=== PATIENT | male | born 1975 | race Caucasian/White ===

== ENCOUNTER 2017-07-31 09:51 | Inpatient (IN) | payer OTHER ==
[2017-07-31 11:05] VITALS: BMI 25.0
--- NOTE | 2017-07-31 13:01 | HP ---
Admission [facility] Chief Complaint: DETOX TX FOR HEROIN AND XANAX DEPENDENCE Allergies/Adverse Reactions: Allergies Allergy/AdvReac Type Severity Reaction Status Date / Time fish Allergy Intermediate Hives Uncoded 07/31/17 11:27 History of Present Illness: 42 Y/O H/M WITH A HX OF XANAX AND HEROIN DEPENDENCE SEEKING DETOX TX. Exam Limitations: No Limitations - Ebola screening Have you traveled outside of the country in the last 21 days: No Have you had contact with anyone from an Ebola affected area: No Have you been sick,other than usual withdrawal symptoms: No Do you have a fever: No - Review of Systems Constitutional: Chills, Loss of Appetite, Night Sweats, Changes in sleep, Unintentional Wgt. Loss EENT: reports: Blurred Vision (WEARS RX GLASSES), Tearing, Nose Congestion, Dental Problems (MISSING TEETH) Respiratory: reports: No Symptoms reported Cardiac: reports: No Symptoms Reported GI: reports: Constipated, Diarrhea, Nausea, Poor Appetite, Poor Fluid Intake, Vomiting, Abdominal cramping : reports: Dysuria Musculoskeletal: reports: Back Pain, Joint Pain, Muscle Pain Integumentary: reports: Bruising (IVD INJ. SITES ON LEFT HAND) Neuro: reports: Unsteady Gait Endocrine: reports: No Symptoms Reported Hematology: reports: No Symptoms Reported Psychiatric: reports: Orientated x3, Anxious Other Systems: Reviewed and Negative Patient History - Patient Medical History Hx Anemia: No Hx Asthma: No Hx Chronic Obstructive Pulmonary Disease (COPD): No Hx Cardiac Disorders: No Hx Hypertension: No Hx Hypercholesterolemia: No HX Cerebrovascular Accident: No Hx Seizures: No Hx Diabetes: No Hx Gastrointestinal Disorders: No Hx Genitourinary Disorders: No Hx Sexually Transmitted Disorders: No Hx Renal Disease (ESRD): No Hx Thyroid Disease: No Hx Human Immunodeficiency Virus (HIV): No (NEGATIVE HX) Hx Hepatitis C: Yes (NO TREATMENT) Hx Depression: No Hx Suicide Attempt: No (DENIES) Hx Schizophrenia: No - Patient Surgical History Past Surgical History: No Hx Neurologic Surgery: No Hx Cataract Extraction: No Hx Cardiac Surgery: No Hx Lung Surgery: No Hx Breast Surgery: No Hx Breast Biopsy: No Hx Abdominal Surgery: No Hx Appendectomy: No Hx Cholecystectomy: No Hx Genitourinary Surgery: No Hx Orthopedic Surgery: No Anesthesia Reaction: No - PPD History Previous Implant?: Yes Documented Results: Negative w/o proof Implanted On Prior [facility] Admission?: No PPD to be Administered?: Yes - Reproductive History Patient is a Female of Child Bearing Age (11 -55 yrs old): No (MALE) Patient : (N/A) - Smoking Cessation Smoking history: Current every day smoker Have you smoked in the past 12 months: Yes Aproximately how many cigarettes per day: 10 Hx Chewing Tobacco Use: No Initiated information on smoking cessation: Yes 'Breaking Loose' booklet given: 07/31/17 - Substance & Tx. History Hx Alcohol Use: No (DENIES) Hx Substance Use: Yes (HEROIN/XANAX/COCAINE/MARIJUANA) Substance Use Type: Cocaine, Heroin, Marijuana, Tranquilizers Hx Substance Use Treatment: Yes (LAST TX AT IN [place] 3 MONTHS AGO) - Substances Abused Heroin Route: Injection Frequency: Daily Amount used: 15 bags Age of first use: 25 Date of Last Use: 07/30/17 Cocaine Route: Injection Frequency: Daily Amount used: 3 bags Age of first use: 25 Date of Last Use: 07/30/17 Marijuana/Hashish Route: Smoking Frequency: 1-3 times last 30 days Amount used: $10 Age of first use: 17 Date of Last Use: 07/28/17 Alprazolam (Xanax) Route: Oral Frequency: 3-6 times per week (4 TIMES A WEEK) Amount used: 2 STIX Age of first use: 28 Date of Last Use: 07/30/17 Family Disease History - Family Disease History Family History: Denies Admission Physical Exam S - Vital Signs Vital Signs: Vital Signs - 24 hr 07/31/17 11:03 Temperature 96.4 F L Pulse Rate 67 Respiratory 20 Rate Blood Pressure 117/73 - Physical General Appearance: Yes: Moderate Distress, Irritable, Anxious HEENTM: Yes: EOMI, Normocephalic, JOCELYN, Pharynx Normal, Rhinorrhea Respiratory: Yes: Chest Non-Tender, Lungs Clear, Normal Breath Sounds, No Respiratory Distress Neck: Yes: No masses,lesions,Nodules, Supple, Trachea in good position Breast: Yes: Breast Exam Deferred Cardiology: Yes: Regular Rhythm, Regular Rate, S1, S2 Abdominal: Yes: Normal Bowel Sounds, Non Tender, Soft Genitourinary: Yes: Other (N/C) Back: Yes: Within Normal Limits Musculoskeletal: Yes: full range of Motion, Gait Steady Extremities: Yes: Normal Range of Motion, Non-Tender 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 NML intact, Fully Oriented, Alert, Motor Strength 5/5 Integumentary: Yes: Dry, Warm, Track Osorio (NO REDNESS OR SWELLING) Lymphatic: Yes: Within Normal Limits - Diagnostic (1) Opioid dependence with withdrawal Current Visit: Yes Status: Acute (2) Sedative, hypnotic or anxiolytic dependence with withdrawal, uncomplicated Current Visit: Yes Status: Acute (3) Cannabis dependence, uncomplicated Current Visit: Yes Status: Acute (4) Cocaine dependence, uncomplicated Current Visit: Yes Status: Acute (5) History of hepatitis C Current Visit: Yes Status: Chronic Cleared for Admission [facility] - Detox or Rehab [facility] Level of Care: Medically Managed Detox Regimen/Protocol: Methadone/Valium [facility] Breath Alcohol Content Breath Alcohol Content: 0 Urine Drug Screen - Results Drug Screen Negative: No Urine Drug Screen Results: THC-Marijuana, MONSTER-Cocaine, OPI-Opiates, BZO- Benzodiazepines, MTD-Methadone, OXY-Oxycodone
[2017-07-31] MEDS ORDERED: diphenhydrAMINE HCL 50 MG CAPSULE PO PRN (14:31)
[2017-07-31] MEDS ORDERED: NICOTINE POLACRILEX 2 MG GUM BUC PRN (14:31)
[2017-07-31] MEDS ORDERED: LOPERAMIDE HCL 2 MG CAPSULE PO PRN (14:31)
[2017-07-31] MEDS ORDERED: MENTHOL/PHENOL 1 EACH UD MM PRN (14:31)
[2017-07-31] MEDS ORDERED: MAGNESIUM CITRATE 300 ML BOTTLE PO PRN (14:31)
[2017-07-31] MEDS ORDERED: ACETAMINOPHEN 325 MG TABLET (FP) PO PRN (14:31)
[2017-07-31] MEDS ORDERED: MAGNESIUM HYDROX 2400MG/30ML ORAL SUSPENSION 30 ML CUP PO PRN (14:31)
[2017-07-31] MEDS ORDERED: guaiFENesin/D-METHORPHAN HB 10 ML UNIT-DOSE CUPS PO PRN (14:31)
[2017-07-31] MEDS ORDERED: IBUPROFEN 400 MG TABLET (FP) PO PRN (14:31)
[2017-07-31] MEDS ORDERED: hydrOXYzine PAMOATE 50 MG CAPSULE (FP) PO PRN (14:31)
[2017-07-31] MEDS ORDERED: MAG HYDROX/AL HYDROX/SIMETH 30 ML UNIT-DOSE CUP PO PRN (14:31)
[2017-07-31] MEDS ORDERED: P-EPHED 60MG/TRIPROLIDI 2.5MG TABLET PO PRN (14:31)
[2017-07-31] MEDS ORDERED: diazePAM 5 MG TABLET PO ONE (15:18)
[2017-07-31] MEDS ORDERED: METHADONE HCL 10 MG TABLET (FOR DETOX USE ONLY) PO ONE ×2 (15:21→23:00)
[2017-07-31] MEDS: diazePAM 5 MG TABLET PO SCH ×2 (15:25→22:35)
[2017-07-31] MEDS: NICOTINE 14 MG/24 HOURS TOPICAL PATCH TD SCH (15:37)
[2017-07-31 16:09] LABS: HIV 1 & 2 AB NEGATIVE; HIV 1 AGp24 NEGATIVE
[2017-07-31 21:55] LABS: URINE APPEARANCE TURBID; URINE BILIRUBIN NEGATIVE (NEGATIVE); URINE BLOOD NEGATIVE (NEGATIVE); URINE COLOR YELLOW; URINE GLUCOSE (UA) NEGATIVE (NEGATIVE); URINE KETONE TRACE (NEGATIVE); URINE NITRITE NEGATIVE (NEGATIVE)
[2017-07-31 21:59] LABS: URINE PROTEIN 1+ (NEGATIVE)
[2017-07-31 22:10] LABS: URINE MUCUS MANY
[2017-07-31] MEDS: THIAMINE HCL 100 MG TABLET (FP) PO SCH (22:35)
[2017-07-31 22:53] LABS: URINE LEUK ESTERASE Negative (NEGATIVE)
[2017-08-01] MEDS: diazePAM 5 MG TABLET PO SCH ×3 (06:00→23:02)
[2017-08-01] MEDS: diazePAM 5 MG TABLET PO PRN ×2 (06:23→10:30)
[2017-08-01 09:36] LABS: MCH 26.5 pg (25.7-33.7); MEAN CELL VOLUME 82.8 fl (80-96); MEAN PLT VOLUME 11.3 fl (7.5-11.1); PLATELET COUNT 201 K/MM3 (134-434); WHITE BLOOD COUNT 7.3 K/mm3 (4.0-10.0)
[2017-08-01] MEDS ORDERED: METHADONE HCL 10 MG TABLET (FOR DETOX USE ONLY) PO SCH (10:00)
[2017-08-01] MEDS: PRENATAL VITAMINS W/ FOLIC ACID TABLET (FP) PO SCH (10:05)
[2017-08-01 10:06] LABS: ALBUMIN 3.5 g/dl (3.4-5.0); ALK PHOS 79 U/L (45-117); ANION GAP 9 (8-16); BILIRUBIN,TOTAL 0.3 mg/dL (0.2-1.0); CALCIUM 9.4 mg/dL (8.5-10.1); CO2 27 mmol/L (21-32); GLUCOSE,RANDOM 106 mg/dL (74-106); SGOT/AST 32 U/L (15-37); SGPT/ALT 46 U/L (12-78); TOT PROT 7.8 g/dl (6.4-8.2)
[2017-08-01] MEDS: NICOTINE 14 MG/24 HOURS TOPICAL PATCH TD SCH (10:07)
--- NOTE | 2017-08-01 12:05 | EKG ---
Test Reason : Blood Pressure : / mmHG Vent. Rate : 046 BPM Atrial Rate : 046 BPM P-R Int : 134 ms QRS Dur : 090 ms QT Int : 490 ms P-R-T Axes : 074 080 074 degrees QTc Int : 428 ms SINUS BRADYCARDIA WITH SINUS ARRHYTHMIA MINIMAL VOLTAGE CRITERIA FOR LVH, MAY BE NORMAL VARIANT BORDERLINE ECG NO PREVIOUS ECGS AVAILABLE Confirmed by MJ AGRAWAL MD ([id number]) on 08/01/2017 12:04:59 PM Referred By: Confirmed By:MJ AGRAWAL MD
--- NOTE | 2017-08-01 12:10 | PN ---
[facility] CIWA - CIWA Score Nausea/Vomitin-No Nausea/No Vomiting Muscle Tremors: 3 Anxiety: 4-Mod. Anxious/Guarded Agitation: 3 Paroxysmal Sweats: 3 Orientation: 0-Oriented Tacttile Disturbances: 1-Very Mild Itch/Numbness Auditory Disturbances: 2-Mild Harshness/Frighten Visual Disturbances: 3-Moderate Sensitivity Headache: 0-None Present CIWA-Ar Total Score: 19 BHS COWS - Scale Resting Pulse: 0= [place] 80 or Below Sweatin= Chills/Flushing Restless Observation: 1= Difficult to Sit Still Pupil Size: 0= Normal to Room Light Bone or Joint Aches: 2= Severe Diffuse Aches Runny Nose/ Eye Tearin= Nasal Congestion GI Upset > 30mins: 1= Stomach Cramp Tremor Observation of Outstretched Hands: 2= Slight Tremor Visible Yawning Observation: 1= 1-2x During Session Anxiety or Irritability: 2=Irritable/Anxious Goose Flesh Skin: 3=Piloerection COWS Score: 14 S Progress Note (SOAP) Subjective: Tremors, Interrupted sleep, Body Aches, Sweating, Stomach Cramping. Objective: PT. A & O X 3. NO ACUTE DISTRESS. PT. DENIES CHEST PAIN. 08/01/17 12:08 Vital Signs Temperature 96 F L 08/01/17 09:43 Pulse Rate 59 L 08/01/17 09:43 Respiratory Rate 16 08/01/17 09:43 Blood Pressure 123/55 08/01/17 09:43 O2 Sat by Pulse Oximetry (%) Laboratory Tests 07/31/17 07/31/17 08/01/17 12:00 21:30 06:00 WBC 7.3 RBC 4.72 Hgb 12.5 Hct 39.1 MCV 82.8 MCH 26.5 MCHC 32.0 RDW 14.0 Plt Count 201 MPV 11.3 H Sodium Potassium Chloride Carbon Dioxide Anion Gap BUN Creatinine Creat Clearance w eGFR Random Glucose Calcium Total Bilirubin AST ALT Alkaline Phosphatase Total Protein Albumin Urine Color Yellow Urine Appearance Turbid Urine pH 5.0 Ur Specific [place] >= 1.030 H Urine Protein 1+ H Urine Glucose (UA) Negative Urine Ketones Trace H Urine Blood Negative Urine Nitrite Negative Urine Bilirubin Negative Urine Urobilinogen 2.0 Ur Leukocyte Esterase Negative Urine RBC None Urine WBC None Ur Epithelial Cells Rare Urine Mucus Many RPR Titer HIV 1&2 Antibody Screen Negative HIV P24 Antigen Negative 08/01/17 08/01/17 06:00 06:00 WBC RBC Hgb Hct MCV MCH MCHC RDW Plt Count MPV Sodium 140 Potassium 3.9 Chloride 104 Carbon Dioxide 27 Anion Gap 9 BUN 13 Creatinine 1.0 Creat Clearance w eGFR > 60 Random Glucose 106 Calcium 9.4 Total Bilirubin 0.3 AST 32 ALT 46 Alkaline Phosphatase 79 Total Protein 7.8 Albumin 3.5 Urine Color Urine Appearance Urine pH Ur Specific [place] Urine Protein Urine Glucose (UA) Urine Ketones Urine Blood Urine Nitrite Urine Bilirubin Urine Urobilinogen Ur Leukocyte Esterase Urine RBC Urine WBC Ur Epithelial Cells Urine Mucus RPR Titer Nonreactive HIV 1&2 Antibody Screen HIV P24 Antigen LABS NOTED. Assessment: 08/01/17 12:08 WITHDRAWAL SYMPTOMS. Plan: CONTINUE DETOX. INCREASE DAILY PO FLUID INTAKE.
[2017-08-01] MEDS: THIAMINE HCL 100 MG TABLET (FP) PO SCH (23:02)
[2017-08-02] MEDS: diazePAM 5 MG TABLET PO SCH ×2 (10:13→22:23)
[2017-08-02] MEDS: PRENATAL VITAMINS W/ FOLIC ACID TABLET (FP) PO SCH (10:13)
[2017-08-02] MEDS: METHADONE HCL 5 MG TABLET (FOR DETOX USE ONLY) PO SCH (10:13)
[2017-08-02] MEDS: NICOTINE 14 MG/24 HOURS TOPICAL PATCH TD SCH (10:14)
--- NOTE | 2017-08-02 10:29 | PN ---
[facility] CIWA - CIWA Score Nausea/Vomitin-No Nausea/No Vomiting Muscle Tremors: 4-Moderate,w/Arms Extend Anxiety: 4-Mod. Anxious/Guarded Agitation: 4-Moderately Restless Paroxysmal Sweats: 1-Minimal Palms Moist Orientation: 0-Oriented Tacttile Disturbances: 3-Moderate Itch/Numb/Burn Auditory Disturbances: 0-None Visual Disturbances: 0-None Headache: 0-None Present CIWA-Ar Total Score: 16 S COWS - Scale Resting Pulse: 0= [place] 80 or Below Sweatin= Chills/Flushing Restless Observation: 3= Extraneous Movement Pupil Size: 0= Normal to Room Light Bone or Joint Aches: 4=Acute Joint/Muscle Pain Runny Nose/ Eye Tearin= Runny Nose/Eyes GI Upset > 30mins: 2= Nausea/Diarrhea Tremor Observation of Outstretched Hands: 2= Slight Tremor Visible Yawning Observation: 1= 1-2x During Session Anxiety or Irritability: 2=Irritable/Anxious Goose Flesh Skin: 0=Smooth Skin COWS Score: 17 [facility] Progress Note (SOAP) Subjective: ANXIETY,SWEATS,DIARRHEA,BACKACHE,RUNNY NOSE,YAWNING,IRRITABILITY. Objective: 08/02/17 10:30 Vital Signs Temperature 96.1 F L 08/02/17 10:11 Pulse Rate 59 L 08/02/17 10:11 Respiratory Rate 18 08/02/17 10:11 Blood Pressure 122/68 08/02/17 10:11 O2 Sat by Pulse Oximetry (%) Laboratory Last Values WBC 7.3 K/mm3 (4.0-10.0) 08/01/17 06:00 RBC 4.72 M/mm3 (4.00-5.60) 08/01/17 06:00 Hgb 12.5 GM/dL (11.7-16.9) 08/01/17 06:00 Hct 39.1 % (35.4-49) 08/01/17 06:00 MCV 82.8 fl (80-96) 08/01/17 06:00 MCH 26.5 pg (25.7-33.7) 08/01/17 06:00 MCHC 32.0 g/dl (32.0-35.9) 08/01/17 06:00 RDW 14.0 % (11.9-15.9) 08/01/17 06:00 Plt Count 201 K/MM3 (134-434) 08/01/17 06:00 MPV 11.3 fl (7.5-11.1) H 08/01/17 06:00 Sodium 140 mmol/L (136-145) 08/01/17 06:00 Potassium 3.9 mmol/L (3.5-5.1) 08/01/17 06:00 Chloride 104 mmol/L (98-107) 08/01/17 06:00 Carbon Dioxide 27 mmol/L (21-32) 08/01/17 06:00 Anion Gap 9 (8-16) 08/01/17 06:00 BUN 13 mg/dL (7-18) 08/01/17 06:00 Creatinine 1.0 mg/dL (0.7-1.3) 08/01/17 06:00 Creat Clearance w eGFR > 60 (>60) 08/01/17 06:00 Random Glucose 106 mg/dL (74-106) 08/01/17 06:00 Calcium 9.4 mg/dL (8.5-10.1) 08/01/17 06:00 Total Bilirubin 0.3 mg/dL (0.2-1.0) 08/01/17 06:00 AST 32 U/L (15-37) 08/01/17 06:00 ALT 46 U/L (12-78) 08/01/17 06:00 Alkaline Phosphatase 79 U/L (45-117) 08/01/17 06:00 Total Protein 7.8 g/dl (6.4-8.2) 08/01/17 06:00 Albumin 3.5 g/dl (3.4-5.0) 08/01/17 06:00 Urine Color Yellow 07/31/17 21:30 Urine Appearance Turbid 07/31/17 21:30 Urine pH 5.0 (5.0-8.0) 07/31/17 21:30 Ur Specific [place] >= 1.030 (1.005-1.025) H 07/31/17 21:30 Urine Protein 1+ (NEGATIVE) H 07/31/17 21:30 Urine Glucose (UA) Negative (NEGATIVE) 07/31/17 21:30 Urine Ketones Trace (NEGATIVE) H 07/31/17 21:30 Urine Blood Negative (NEGATIVE) 07/31/17 21:30 Urine Nitrite Negative (NEGATIVE) 07/31/17 21:30 Urine Bilirubin Negative (NEGATIVE) 07/31/17 21:30 Urine Urobilinogen 2.0 mg/dL (0.2-1.0) 07/31/17 21:30 Ur Leukocyte Esterase Negative (NEGATIVE) 07/31/17 21:30 Urine RBC None /hpf (0-3) 07/31/17 21:30 Urine WBC None /hpf (3-5) 07/31/17 21:30 Ur Epithelial Cells Rare /hpf (FEW) 07/31/17 21:30 Urine Mucus Many 07/31/17 21:30 RPR Titer Nonreactive (NONREACTIVE) 08/01/17 06:00 HIV 1&2 Antibody Screen Negative 07/31/17 12:00 HIV P24 Antigen Negative 07/31/17 12:00 Assessment: 08/02/17 10:31 WITHDRAWAL SX Plan: CONTINUE DETOX.
[2017-08-02] MEDS: THIAMINE HCL 100 MG TABLET (FP) PO SCH (22:23)
[2017-08-02 22:30] VITALS: BP 116/52; PULSE 51; TEMP 97.2
[2017-08-03] MEDS: METHADONE HCL 5 MG TABLET (FOR DETOX USE ONLY) PO SCH (10:09)
[2017-08-03] MEDS: PRENATAL VITAMINS W/ FOLIC ACID TABLET (FP) PO SCH (10:09)
[2017-08-03] MEDS: diazePAM 5 MG TABLET PO SCH (10:09)
[2017-08-03] MEDS: NICOTINE 14 MG/24 HOURS TOPICAL PATCH TD SCH (10:10)
--- NOTE | 2017-08-03 14:23 | DS ---
[facility] Detox Discharge Summary Admission Date: 07/31/17 Discharge Date: 08/03/17 - History Present History: Cannabis Dependence, Cocaine Dependence, Opioid Dependence, Sedative Dependence Additional Comments: PT. DOES NOT WISH TO STAY TO COMPLETE DETOX REGIMEN. RISKS OF LEAVING DETOX UNIT PRIOR TO COMPLETION OF DETOX PROTOCOL DISCUSSED WITH PATIENT. PATIENT ADVISED TO GO IMMEDIATELY TO NEAREST ER SHOULD ANY INTOLERABLE DETOX SYMPTOMS DEVELOP AT ANY TIME. PATIENT LEFT DETOX UNIT IN STABLE MEDICAL CONDITION. Pertinent Past History: Hep C. - Physical Exam Results Vital Signs: Vital Signs Temperature 97.2 F L 08/02/17 22:29 Pulse Rate 51 L 08/02/17 22:29 Respiratory Rate 18 08/03/17 03:30 Blood Pressure 116/52 08/02/17 22:29 O2 Sat by Pulse Oximetry (%) Pertinent Admission Physical Exam Findings: WITHDRAWAL SYMPTOMS. Laboratory Tests 07/31/17 07/31/17 08/01/17 12:00 21:30 06:00 WBC 7.3 RBC 4.72 Hgb 12.5 Hct 39.1 MCV 82.8 MCH 26.5 MCHC 32.0 RDW 14.0 Plt Count 201 MPV 11.3 H Sodium Potassium Chloride Carbon Dioxide Anion Gap BUN Creatinine Creat Clearance w eGFR Random Glucose Calcium Total Bilirubin AST ALT Alkaline Phosphatase Total Protein Albumin Urine Color Yellow Urine Appearance Turbid Urine pH 5.0 Ur Specific [place] >= 1.030 H Urine Protein 1+ H Urine Glucose (UA) Negative Urine Ketones Trace H Urine Blood Negative Urine Nitrite Negative Urine Bilirubin Negative Urine Urobilinogen 2.0 Ur Leukocyte Esterase Negative Urine RBC None Urine WBC None Ur Epithelial Cells Rare Urine Mucus Many RPR Titer HIV 1&2 Antibody Screen Negative HIV P24 Antigen Negative 08/01/17 08/01/17 06:00 06:00 WBC RBC Hgb Hct MCV MCH MCHC RDW Plt Count MPV Sodium 140 Potassium 3.9 Chloride 104 Carbon Dioxide 27 Anion Gap 9 BUN 13 Creatinine 1.0 Creat Clearance w eGFR > 60 Random Glucose 106 Calcium 9.4 Total Bilirubin 0.3 AST 32 ALT 46 Alkaline Phosphatase 79 Total Protein 7.8 Albumin 3.5 Urine Color Urine Appearance Urine pH Ur Specific [place] Urine Protein Urine Glucose (UA) Urine Ketones Urine Blood Urine Nitrite Urine Bilirubin Urine Urobilinogen Ur Leukocyte Esterase Urine RBC Urine WBC Ur Epithelial Cells Urine Mucus RPR Titer Nonreactive HIV 1&2 Antibody Screen HIV P24 Antigen LABS NOTED. - Treatment Hospital Course: Detoxed Safely - Medication Discharge Medications: Ambulatory Orders NK [No Known Home Medication] 07/31/17 - Diagnosis (1) Cannabis dependence, uncomplicated Status: Acute (2) Cocaine dependence, uncomplicated Status: Acute (3) Opioid dependence with withdrawal Status: Acute (4) Sedative, hypnotic or anxiolytic dependence with withdrawal, uncomplicated Status: Acute (5) History of hepatitis C Status: Chronic - AMA Did Patient Leave Against Medical Advice: Yes (PATIENT DID NOT WISH TO STAY TO COMPLETE DETOX REGIMEN.)
[2017-08-04] MEDS ORDERED: diazePAM 5 MG TABLET PO SCH (10:00)
[2017-08-04] MEDS ORDERED: METHADONE HCL 10 MG TABLET (FOR DETOX USE ONLY) PO SCH (10:00)
[2017-08-05] MEDS ORDERED: METHADONE HCL 5 MG TABLET (FOR DETOX USE ONLY) PO SCH (06:00)
== END 2017-08-03 10:45 | disposition left against medical advice (07) | DRG 770 ==
LOC: YASAS 09:51 → Y3N 13:39
PROVIDERS: ADMIT Internal Medicine; ATTEND Internal Medicine
PROC: HZ2ZZZZ Detoxification Services for Substance Abuse Treatment (ICD-10-PCS; principal; 2017-07-31)
DX: F11.23 Opioid dependence with withdrawal (principal); F13.230 Sedative, hypnotic or anxiolytic dependence with withdrawal, uncomplicated; F14.20 Cocaine dependence, uncomplicated; F12.20 Cannabis dependence, uncomplicated; F17.210 Nicotine dependence, cigarettes, uncomplicated; B18.2 Chronic viral hepatitis C; Z91.013 Allergy to seafood; Z59.0 Homelessness
CPT/HCPCS: 36415; 80053; 81003; 81015; 85027; 86593; 87389; 93005; 93010

== ENCOUNTER 2021-07-23 11:25 | Inpatient (IN) | payer OTHER ==
[2021-07-23 12:52] VITALS: BMI 27.6
[2021-07-23] MEDS ORDERED: NALOXONE (NARCAN) HCL 4 MG/0.1 ML SPRAY NS PRN (14:02)
[2021-07-23] MEDS ORDERED: methaDONE HCL 10 MG TABLET (FOR DETOX USE ONLY) PO ONE (14:02)
[2021-07-23] MEDS ORDERED: IBUPROFEN 400 MG TABLET (FP) PO PRN (14:02)
[2021-07-23] MEDS ORDERED: MAGNESIUM CITRATE 300 ML BOTTLE PO PRN (14:02)
[2021-07-23] MEDS ORDERED: MAG HYDROX/AL HYDROX/SIMETH 30 ML UNIT-DOSE CUP PO PRN (14:02)
[2021-07-23] MEDS ORDERED: MENTHOL/PHENOL 1 EACH UD MM PRN (14:02)
[2021-07-23] MEDS ORDERED: BISMUTH SUBSALICYLATE 524 MG/30 ML PO PRN (14:02)
[2021-07-23] MEDS ORDERED: MAGNESIUM HYDROX 2400MG/30ML ORAL SUSPENSION 30 ML CUP PO PRN (14:02)
[2021-07-23] MEDS ORDERED: ACETAMINOPHEN 325 MG TABLET (FP) PO PRN ×2 (14:02)
[2021-07-23] MEDS ORDERED: methaDONE HCL 10 MG TABLET (FOR DETOX USE ONLY) ONE (15:40)
[2021-07-23] MEDS: MELATONIN 5 MG TABLETS PO SCH (22:46)
[2021-07-23] MEDS: cloNIDine HCL 0.1 MG TABLET PO PRN (22:46)
[2021-07-23] MEDS: METHOCARBAMOL 500 MG TABLET PO PRN (22:46)
[2021-07-23] MEDS: THIAMINE HCL 100 MG TABLET (FP) PO SCH (22:46)
[2021-07-24] MEDS: METHOCARBAMOL 500 MG TABLET PO PRN ×2 (07:45→17:48)
[2021-07-24] MEDS ORDERED: methaDONE HCL 10 MG TABLET (FOR DETOX USE ONLY) ONE (09:37)
[2021-07-24 10:30] LABS: HEMATOCRIT 39.8 % (35.4-49); HEMOGLOBIN 13.2 GM/dL (11.7-16.9); MCH 27.7 pg (25.7-33.7); MCHC 33.1 g/dl (32.0-35.9); MEAN CELL VOLUME 83.8 fl (80-96); MEAN PLT VOLUME 9.9 fl (7.5-11.1); PLATELET COUNT 224 10^3/uL (134-434); RBC 4.75 M/mm3 (4.00-5.60); RDW 14.6 % (11.9-15.9)
[2021-07-24 10:39] LABS: ALBUMIN 3.4 g/dl (3.4-5.0); BLOOD UREA NITROGEN 10.5 mg/dL (7-18); CALCIUM 9.8 mg/dL (8.5-10.1)
[2021-07-24] MEDS: PRENATAL VITAMINS W/ FOLIC ACID TABLET (FP) PO SCH (10:40)
[2021-07-24 10:42] LABS: BILIRUBIN,TOTAL 0.5 mg/dL (0.2-1); CREATININE 1.1 mg/dL (0.55-1.3)
[2021-07-24 10:44] LABS: TOT PROT 7.6 g/dl (6.4-8.2)
[2021-07-24 11:47] LABS: HIV INTERPRETATION NEGATIVE (NEGATIVE)
[2021-07-24] MEDS: cloNIDine HCL 0.1 MG TABLET PO PRN (17:48)
[2021-07-24] MEDS: MELATONIN 5 MG TABLETS PO SCH (23:04)
[2021-07-24] MEDS: THIAMINE HCL 100 MG TABLET (FP) PO SCH (23:04)
[2021-07-25] MEDS ORDERED: methaDONE HCL 10 MG TABLET (FOR DETOX USE ONLY) PO ONE (10:00)
[2021-07-25] MEDS: PRENATAL VITAMINS W/ FOLIC ACID TABLET (FP) PO SCH (10:15)
[2021-07-25] MEDS: METHOCARBAMOL 500 MG TABLET PO PRN (10:16)
[2021-07-25] MEDS: NICOTINE 10 MG CARTRIDGE (INHALER) IH PRN ×2 (10:18→14:54)
[2021-07-25] MEDS: cloNIDine HCL 0.1 MG TABLET PO PRN (14:54)
[2021-07-25] MEDS: MELATONIN 5 MG TABLETS PO SCH (22:02)
[2021-07-25] MEDS: THIAMINE HCL 100 MG TABLET (FP) PO SCH (22:02)
[2021-07-26] MEDS ORDERED: methaDONE HCL 10 MG TABLET (FOR DETOX USE ONLY) ONE (09:11)
[2021-07-26] MEDS: PRENATAL VITAMINS W/ FOLIC ACID TABLET (FP) PO SCH (10:06)
[2021-07-26] MEDS ORDERED: MODERNA COVID-19 VACC,MRNA/PF 100 MCG/0.5 ML IM ONE (11:00)
[2021-07-26] MEDS ORDERED: MELATONIN 5 MG TABLETS PO SCH (22:00)
[2021-07-26] MEDS: THIAMINE HCL 100 MG TABLET (FP) PO SCH (22:01)
[2021-07-26] MEDS: cloNIDine HCL 0.1 MG TABLET PO PRN (22:01)
[2021-07-26] MEDS: METHOCARBAMOL 500 MG TABLET PO PRN (22:01)
[2021-07-27] MEDS: METHOCARBAMOL 500 MG TABLET PO PRN (07:01)
[2021-07-27] MEDS: cloNIDine HCL 0.1 MG TABLET PO PRN (07:01)
[2021-07-27 09:27] VITALS: BP 123/68; PULSE 55; TEMP 97.5
[2021-07-27] MEDS ORDERED: methaDONE HCL 10 MG TABLET (FOR DETOX USE ONLY) PO ONE (10:00)
[2021-07-27] MEDS: PRENATAL VITAMINS W/ FOLIC ACID TABLET (FP) PO SCH (10:47)
== END 2021-07-27 12:23 | disposition home or self-care (01) | DRG 773 ==
LOC: YASAS 11:25 → Y6N 15:00
PROVIDERS: ADMIT Allergy & Immunology; ATTEND Allergy & Immunology
PROC: HZ2ZZZZ Detoxification Services for Substance Abuse Treatment (ICD-10-PCS; principal; 2021-07-23)
DX: F11.23 Opioid dependence with withdrawal (principal); F14.20 Cocaine dependence, uncomplicated; F12.20 Cannabis dependence, uncomplicated; F17.213 Nicotine dependence, cigarettes, with withdrawal; Z86.19 Personal history of other infectious and parasitic diseases; Z59.00 Homelessness unspecified
CPT/HCPCS: 0011A; 36415; 80053; 82962; 85027; 86780; 87389; 91301; 93005; 93010; C9803; J0735; U0003; U0005

== ENCOUNTER 2021-11-21 12:44 | Inpatient (IN) | payer OTHER ==
[2021-11-21] MEDS ORDERED: MAGNESIUM HYDROX 2400MG/30ML ORAL SUSPENSION 30 ML CUP PO PRN (13:20)
[2021-11-21] MEDS ORDERED: NICOTINE 10 MG CARTRIDGE (INHALER) IH PRN (13:20)
[2021-11-21] MEDS ORDERED: ONDANSETRON *ODT* 4 MG TABLET SL PRN (13:20)
[2021-11-21] MEDS ORDERED: IBUPROFEN 400 MG TABLET (FP) PO PRN (13:20)
[2021-11-21] MEDS ORDERED: MAGNESIUM CITRATE 300 ML BOTTLE PO PRN (13:20)
[2021-11-21] MEDS ORDERED: MENTHOL/PHENOL 1 EACH UD MM PRN (13:20)
[2021-11-21] MEDS ORDERED: BISMUTH SUBSALICYLATE 262 MG/15 ML BTL PO PRN (13:20)
[2021-11-21] MEDS ORDERED: MAG HYDROX/AL HYDROX/SIMETH 30 ML UNIT-DOSE CUP PO PRN (13:20)
[2021-11-21] MEDS ORDERED: methaDONE HCL 10 MG TABLET (FOR DETOX USE ONLY) PO ONE (13:20)
[2021-11-21] MEDS ORDERED: ACETAMINOPHEN 325 MG TABLET (FP) PO PRN ×2 (13:20)
[2021-11-21] MEDS ORDERED: cloNIDine HCL 0.1 MG TABLET PO ONE (13:56)
[2021-11-21] MEDS ORDERED: BUPRENORPHINE HCL 150 MCG, BUPRENORPHINE HCL 75 MCG BC ONE (13:56)
[2021-11-21 14:21] VITALS: BMI 26.4
[2021-11-21] MEDS ORDERED: BUPRENORPHINE HCL 150 MCG FILM BC ONE (15:00)
[2021-11-21] MEDS ORDERED: BUPRENORPHINE HCL 75 MCG FILM BC ONE (15:01)
[2021-11-21] MEDS: hydrOXYzine PAMOATE 25 MG CAPSULE (FP) PO SCH ×3 (16:02→22:28)
[2021-11-21] MEDS ORDERED: cloNIDine HCL 0.1 MG TABLET PO PRN (17:56)
[2021-11-21] MEDS: MELATONIN 5 MG TABLETS PO SCH (22:27)
[2021-11-21] MEDS: THIAMINE HCL 100 MG TABLET (FP) PO SCH (22:27)
[2021-11-21] MEDS: METHOCARBAMOL 500 MG TABLET PO PRN (22:28)
[2021-11-22] MEDS ORDERED: BUPRENORPHINE HCL 150 MCG FILM BC ONE ×2 (04:26→17:06)
[2021-11-22] MEDS ORDERED: BUPRENORPHINE HCL 75 MCG FILM BC ONE ×2 (04:27→17:05)
[2021-11-22] MEDS: hydrOXYzine PAMOATE 25 MG CAPSULE (FP) PO SCH ×5 (06:10→22:27)
[2021-11-22] MEDS: BUPRENORPHINE HCL 150 MCG, BUPRENORPHINE HCL 75 MCG BC SCH ×2 (06:10→17:49)
[2021-11-22 09:31] LABS: HEMATOCRIT 36.5 % (35.4-49); HEMOGLOBIN 12.1 GM/dL (11.7-16.9); MCH 27.4 pg (25.7-33.7); MCHC 33.1 g/dl (32.0-35.9); MEAN CELL VOLUME 82.8 fl (80-96); MEAN PLT VOLUME 9.7 fl (7.5-11.1); PLATELET COUNT 243 10^3/uL (134-434); RBC 4.41 M/mm3 (4.00-5.60); RDW 15.5 % (11.9-15.9); WHITE BLOOD COUNT 5.1 K/mm3 (4.0-10.0)
[2021-11-22 10:37] LABS: CALCIUM 8.7 mg/dL (8.5-10.1)
[2021-11-22 10:38] LABS: ALBUMIN 2.8 g/dl (3.4-5.0); BLOOD UREA NITROGEN 10.2 mg/dL (7-18)
[2021-11-22 10:43] LABS: TOT PROT 6.2 g/dl (6.4-8.2)
[2021-11-22 10:50] LABS: BILIRUBIN,TOTAL 0.8 mg/dL (0.2-1)
[2021-11-22] MEDS: PRENATAL VITAMINS W/ FOLIC ACID TABLET (FP) PO SCH (11:15)
[2021-11-22] MEDS: THIAMINE HCL 100 MG TABLET (FP) PO SCH (22:27)
[2021-11-22] MEDS: MELATONIN 5 MG TABLETS PO SCH (22:27)
[2021-11-22] MEDS: METHOCARBAMOL 500 MG TABLET PO PRN (22:27)
[2021-11-23] MEDS ORDERED: BUPRENORPHINE HCL 450 MCG FILM BC SCH (06:00)
[2021-11-23] MEDS: hydrOXYzine PAMOATE 25 MG CAPSULE (FP) PO SCH ×5 (06:57→22:51)
[2021-11-23] MEDS ORDERED: methaDONE HCL 10 MG TABLET (FOR DETOX USE ONLY) PO ONE ×2 (10:00→14:39)
[2021-11-23] MEDS: cloNIDine HCL 0.1 MG TABLET PO PRN ×2 (10:31→14:34)
[2021-11-23] MEDS: METHOCARBAMOL 500 MG TABLET PO PRN (10:31)
[2021-11-23] MEDS: PRENATAL VITAMINS W/ FOLIC ACID TABLET (FP) PO SCH (10:32)
[2021-11-23] MEDS ORDERED: diazePAM 5 MG TABLET PO ONE (14:10)
[2021-11-23] MEDS: diazePAM 5 MG TABLET PO PRN ×2 (18:05→22:52)
[2021-11-23] MEDS: MELATONIN 5 MG TABLETS PO SCH (22:51)
[2021-11-23] MEDS: THIAMINE HCL 100 MG TABLET (FP) PO SCH (22:51)
[2021-11-24] MEDS ORDERED: BUPRENORPHINE/NALOXONE 4 MG/1 MG FILM PACKET SL SCH (06:00)
[2021-11-24 06:46] VITALS: BP 123/71; PULSE 63; TEMP 97.3
[2021-11-24] MEDS: hydrOXYzine PAMOATE 25 MG CAPSULE (FP) PO SCH (07:41)
[2021-11-25] MEDS ORDERED: BUPRENORPHINE/NALOXONE 8 MG/2 MG FILM PACKET SL ONE (06:00)
[2021-11-25] MEDS ORDERED: methaDONE HCL 10 MG TABLET (FOR DETOX USE ONLY) PO ONE ×2 (10:00)
== END 2021-11-24 09:30 | disposition left against medical advice (07) | DRG 770 ==
LOC: YASAS 12:44 → Y3N 14:33
PROVIDERS: ADMIT Allergy & Immunology; ATTEND Allergy & Immunology
PROC: HZ2ZZZZ Detoxification Services for Substance Abuse Treatment (ICD-10-PCS; principal; 2021-11-21)
DX: F11.23 Opioid dependence with withdrawal (principal); F14.20 Cocaine dependence, uncomplicated; F13.20 Sedative, hypnotic or anxiolytic dependence, uncomplicated; F12.20 Cannabis dependence, uncomplicated; F17.210 Nicotine dependence, cigarettes, uncomplicated; B18.2 Chronic viral hepatitis C; R00.1 Bradycardia, unspecified
CPT/HCPCS: 36415; 80053; 85027; 86780; C9803; J0735; U0003; U0005

== ENCOUNTER 2023-05-15 13:44 | Inpatient (IN) | payer OTHER ==
[2023-05-15 14:40] VITALS: BMI 24.4
[2023-05-15] MEDS ORDERED: MAGNESIUM HYDROX 2400MG/30ML ORAL SUSPENSION 30 ML CUP PO PRN (17:28)
[2023-05-15] MEDS ORDERED: NALOXONE HCL 0.4 MG/ML VIAL IM PRN (17:28)
[2023-05-15] MEDS ORDERED: LORazepam 1 MG TABLET PO PRN (17:28)
[2023-05-15] MEDS ORDERED: IBUPROFEN 400 MG TABLET (FP) PO PRN (17:28)
[2023-05-15] MEDS ORDERED: guaiFENesin 600 MG TABLET.ER (FP) PO PRN (17:28)
[2023-05-15] MEDS ORDERED: MAG HYDROX/AL HYDROX/SIMETH 30 ML UNIT-DOSE CUP PO PRN (17:28)
[2023-05-15] MEDS ORDERED: ONDANSETRON *ODT* 4 MG TABLET SL PRN (17:28)
[2023-05-15] MEDS ORDERED: NALOXONE HCL (KLOXXADO) 8 MG SPRAY NS PRN (17:28)
[2023-05-15] MEDS ORDERED: IBUPROFEN 600 MG TABLET (FP) PO PRN (17:28)
[2023-05-15] MEDS ORDERED: BENZONATATE 200 MG CAPSULE PO PRN (17:28)
[2023-05-15] MEDS ORDERED: DICYCLOMINE HCL 10 MG CAPSULE PO PRN (17:28)
[2023-05-15] MEDS ORDERED: LOPERAMIDE HCL 2 MG CAPSULE PO PRN (17:28)
[2023-05-15] MEDS ORDERED: BISMUTH SUBSALICYLATE 524 MG/30 ML PO PRN (17:28)
[2023-05-15] MEDS ORDERED: cloNIDine HCL 0.1 MG TABLET PO PRN (17:28)
[2023-05-15] MEDS ORDERED: ACETAMINOPHEN 325 MG TABLET (FP) PO PRN (17:28)
[2023-05-15] MEDS ORDERED: methaDONE HCL 10 MG TABLET (FOR DETOX USE ONLY) PO ONE (17:28)
[2023-05-15] MEDS ORDERED: POLYETHYLENE GLYCOL (HEALTHYLAX) 3350 17 GM PACKET PO PRN (17:28)
[2023-05-15] MEDS ORDERED: BENZOCAINE/MENTHOL (CHLORASEPTIC ) LOZENGE MM PRN (17:28)
[2023-05-15] MEDS ORDERED: methaDONE HCL 10 MG TABLET (FOR DETOX USE ONLY) ONE (17:47)
[2023-05-15] MEDS: LORazepam 2 MG TABLET PO SCH (22:46)
[2023-05-15] MEDS: METHOCARBAMOL 500 MG TABLET PO PRN (22:46)
[2023-05-15] MEDS: MELATONIN 5 MG TABLETS PO SCH (22:46)
[2023-05-15] MEDS: THIAMINE HCL 100 MG TABLET (FP) PO SCH (22:46)
[2023-05-16] MEDS: LORazepam 2 MG TABLET PO SCH ×4 (05:32→22:05)
[2023-05-16] MEDS: PRENATAL VITAMINS W/ FOLIC ACID TABLET (FP) PO SCH (10:16)
[2023-05-16 11:40] LABS: HEMATOCRIT 38.7 % (35.4-49); HEMOGLOBIN 12.7 GM/dL (11.7-16.9); MCH 25.9 pg (25.7-33.7); MCHC 32.9 g/dl (32.0-35.9); MEAN CELL VOLUME 78.6 fl (80-96); MEAN PLT VOLUME 9.1 fl (7.5-11.1); PLATELET COUNT 246 10^3/uL (134-434); RBC 4.92 M/mm3 (4.00-5.60); RDW 14.8 % (11.9-15.9); WHITE BLOOD COUNT 6.8 K/mm3 (4.0-10.0)
[2023-05-16 12:06] LABS: POTASSIUM 4.6 mmol/L (3.5-5.1)
[2023-05-16 12:09] LABS: CALCIUM 9.1 mg/dL (8.5-10.1)
[2023-05-16 12:10] LABS: ALBUMIN 3.2 g/dl (3.4-5.0); BLOOD UREA NITROGEN 16.2 mg/dL (7-18)
[2023-05-16 12:11] LABS: CREATININE 0.9 mg/dL (0.55-1.3)
[2023-05-16 12:13] LABS: BILIRUBIN,TOTAL 0.2 mg/dL (0.2-1); TOT PROT 7.1 g/dl (6.4-8.2)
[2023-05-16] MEDS: MELATONIN 5 MG TABLETS PO SCH (22:05)
[2023-05-16] MEDS: THIAMINE HCL 100 MG TABLET (FP) PO SCH (22:05)
[2023-05-16] MEDS: hydrOXYzine PAMOATE 25 MG CAPSULE (FP) PO PRN (22:05)
[2023-05-16] MEDS: METHOCARBAMOL 500 MG TABLET PO PRN (22:05)
[2023-05-17] MEDS ORDERED: LORazepam 1 MG TABLET PO SCH (05:00)
[2023-05-17] MEDS: METHOCARBAMOL 500 MG TABLET PO PRN (05:25)
[2023-05-17] MEDS: hydrOXYzine PAMOATE 25 MG CAPSULE (FP) PO PRN (05:25)
[2023-05-17 05:54] VITALS: BP 115/70; PULSE 50; RESP 16; TEMP 97.3
[2023-05-17] MEDS: PRENATAL VITAMINS W/ FOLIC ACID TABLET (FP) PO SCH (09:24)
[2023-05-17] MEDS ORDERED: methaDONE HCL 10 MG TABLET (FOR DETOX USE ONLY) PO ONE (10:00)
[2023-05-18] MEDS ORDERED: LORazepam 0.5 MG TABLET PO PRN
[2023-05-18] MEDS ORDERED: LORazepam 0.5 MG TABLET PO SCH (05:00)
[2023-05-19] MEDS ORDERED: LORazepam 0.5 MG TABLET PO ONE (05:00)
[2023-05-19] MEDS ORDERED: methaDONE HCL 10 MG TABLET (FOR DETOX USE ONLY) PO ONE (10:00)
== END 2023-05-17 08:16 | disposition left against medical advice (07) | DRG 770 ==
LOC: YASAS 13:44 → Y3N 17:20
PROVIDERS: ADMIT Allergy & Immunology; ATTEND Surgery
PROC: HZ2ZZZZ Detoxification Services for Substance Abuse Treatment (ICD-10-PCS; principal; 2023-05-15)
DX: F11.23 Opioid dependence with withdrawal (principal); F14.20 Cocaine dependence, uncomplicated; F13.20 Sedative, hypnotic or anxiolytic dependence, uncomplicated; F12.20 Cannabis dependence, uncomplicated; F17.210 Nicotine dependence, cigarettes, uncomplicated; F41.9 Anxiety disorder, unspecified; M54.50 Low back pain, unspecified; G89.29 Other chronic pain; Z86.19 Personal history of other infectious and parasitic diseases
CPT/HCPCS: 36415; 80053; 85027; 86780; 87635

== ENCOUNTER 2023-12-28 09:44 | Inpatient (IN) | payer OTHER ==
[2023-12-28 10:17] VITALS: BMI 25.9
[2023-12-28] MEDS ORDERED: MAGNESIUM HYDROX 2400MG/30ML ORAL SUSPENSION 30 ML CUP PO PRN (10:30)
[2023-12-28] MEDS ORDERED: DICYCLOMINE HCL 10 MG CAPSULE PO PRN (10:30)
[2023-12-28] MEDS ORDERED: BENZONATATE 200 MG CAPSULE PO PRN (10:30)
[2023-12-28] MEDS ORDERED: NICOTINE POLACRILEX 4 MG LOZENGE BC PRN (10:30)
[2023-12-28] MEDS ORDERED: BENZOCAINE/MENTHOL (CHLORASEPTIC ) LOZENGE MM PRN (10:30)
[2023-12-28] MEDS ORDERED: NICOTINE POLACRILEX 4 MG GUM BUC PRN (10:30)
[2023-12-28] MEDS ORDERED: MAG HYDROX/AL HYDROX/SIMETH 30 ML UNIT-DOSE CUP PO PRN (10:30)
[2023-12-28] MEDS ORDERED: BISMUTH SUBSALICYLATE 524 MG/30 ML PO PRN (10:30)
[2023-12-28] MEDS ORDERED: NALOXONE HCL 0.4 MG/ML VIAL IM PRN (10:30)
[2023-12-28] MEDS ORDERED: NALOXONE HCL (KLOXXADO) 8 MG SPRAY NS PRN (10:30)
[2023-12-28] MEDS ORDERED: LOPERAMIDE HCL 2 MG CAPSULE PO PRN (10:30)
[2023-12-28] MEDS ORDERED: IBUPROFEN 400 MG TABLET (FP) PO PRN (10:30)
[2023-12-28] MEDS ORDERED: ACETAMINOPHEN 325 MG TABLET (FP) PO PRN (10:30)
[2023-12-28] MEDS ORDERED: POLYETHYLENE GLYCOL (HEALTHYLAX) 3350 17 GM PACKET PO PRN (10:30)
[2023-12-28] MEDS ORDERED: guaiFENesin 600 MG TABLET.ER (FP) PO PRN (10:30)
[2023-12-28] MEDS ORDERED: methaDONE HCL 10 MG TABLET (FOR DETOX USE ONLY) ONE (11:22)
[2023-12-28] MEDS: methaDONE HCL 10 MG TABLET (FOR DETOX USE ONLY) PO ONE (11:26)
[2023-12-28] MEDS: ONDANSETRON *ODT* 4 MG TABLET SL PRN (21:54)
[2023-12-28] MEDS: METHOCARBAMOL 500 MG TABLET PO PRN (22:59)
[2023-12-28] MEDS: cloNIDine HCL 0.1 MG TABLET PO PRN (22:59)
[2023-12-28] MEDS: THIAMINE HCL 100 MG TABLET (FP) PO SCH (22:59)
[2023-12-28] MEDS: MELATONIN 5 MG TABLETS PO SCH (22:59)
[2023-12-29] MEDS: PRENATAL VITAMINS W/ FOLIC ACID TABLET (FP) PO SCH (10:59)
[2023-12-29] MEDS: clonazePAM 0.5 MG ODT TABLETS SL PRN (11:01)
[2023-12-30] MEDS: methaDONE HCL 10 MG TABLET (FOR DETOX USE ONLY) PO ONE (09:38)
[2023-12-30] MEDS: hydrOXYzine PAMOATE 25 MG CAPSULE (FP) PO PRN (09:38)
[2023-12-30 11:52] LABS: BASO % 0.4 % (0-2.0); EOS % 0.3 % (0-4.5); HEMATOCRIT 40.9 % (35.4-49); HEMOGLOBIN 13.3 GM/dL (11.7-16.9); LYMPH % 18.4 % (8-40); MCH 25.7 pg (25.7-33.7); MCHC 32.5 g/dl (32.0-35.9); MEAN CELL VOLUME 79.1 fl (80-96); MEAN PLT VOLUME 9.7 fl (7.5-11.1); MONO % 5.2 % (3.8-10.2); NEUT % 75.7 % (42.8-82.8); PLATELET COUNT 322 10^3/uL (134-434); RBC 5.17 M/mm3 (4.00-5.60); WHITE BLOOD COUNT 12.6 K/mm3 (4.0-10.0)
[2023-12-30 12:24] LABS: POTASSIUM 3.9 mmol/L (3.5-5.1)
[2023-12-30 12:35] LABS: BLOOD UREA NITROGEN 12.7 mg/dL (7-18); CALCIUM 9.4 mg/dL (8.5-10.1)
[2023-12-31 12:14] LABS: BASO % 0.9 % (0-2.0); EOS % 1.5 % (0-4.5); HEMATOCRIT 40.7 % (35.4-49); HEMOGLOBIN 12.9 GM/dL (11.7-16.9); LYMPH % 23.3 % (8-40); MCH 25.5 pg (25.7-33.7); MCHC 31.6 g/dl (32.0-35.9); MEAN CELL VOLUME 80.5 fl (80-96); MEAN PLT VOLUME 9.4 fl (7.5-11.1); MONO % 7.4 % (3.8-10.2); NEUT % 66.9 % (42.8-82.8); PLATELET COUNT 290 10^3/uL (134-434); RBC 5.05 M/mm3 (4.00-5.60); RDW 14.8 % (11.9-15.9); WHITE BLOOD COUNT 13.5 K/mm3 (4.0-10.0)
[2023-12-31] MEDS: CEPHALEXIN MONOHYDRATE 500 MG CAPSULE (UD) PO SCH (18:18)
[2023-12-31] MEDS: IBUPROFEN 600 MG TABLET (FP) PO PRN (22:26)
[2024-01-01] MEDS: methaDONE HCL 10 MG TABLET (FOR DETOX USE ONLY) PO ONE (09:22)
[2024-01-01 21:43] VITALS: BP 147/97; PULSE 68; RESP 17; TEMP 97.8
== END 2024-01-02 09:09 | disposition home or self-care (01) | DRG 773 ==
LOC: YASAS 09:44 → Y6N 11:55
PROVIDERS: ADMIT Allergy & Immunology; ATTEND Surgery
PROC: HZ2ZZZZ Detoxification Services for Substance Abuse Treatment (ICD-10-PCS; principal; 2023-12-28)
DX: F11.23 Opioid dependence with withdrawal (principal); F14.20 Cocaine dependence, uncomplicated; F17.210 Nicotine dependence, cigarettes, uncomplicated; F41.9 Anxiety disorder, unspecified; L03.113 Cellulitis of right upper limb; M54.50 Low back pain, unspecified; G89.29 Other chronic pain; K08.9 Disorder of teeth and supporting structures, unspecified; R73.9 Hyperglycemia, unspecified; Z86.19 Personal history of other infectious and parasitic diseases; Z59.00 Homelessness unspecified
CPT/HCPCS: 36415; 80048; 80305; 82947; 85025; 87635; 87811; 93005; 93010; Q0162